=== PATIENT | male | born 1960 | race Caucasian/White ===

== ENCOUNTER 2018-10-15 18:43 | Observation (INO) ==
[2018-10-15 19:36] LABS: BASOPHILS # (AUTO) 0.1 X10^3/uL (0.0-0.1); BASOPHILS % (AUTO) 0.8 % (0.2-1.0); EOSINOPHILS # (AUTO) 0.1 x10^3/uL (0.0-0.2); EOSINOPHILS % (AUTO) 0.8 % (0.9-2.9); HEMATOCRIT 47.5 % (42.0-54.0); HEMOGLOBIN 16.3 g/dL (13.5-18.0); LYMPHOCYTES # (AUTO) 1.8 X10^3/uL (1.3-2.9); LYMPHOCYTES % (AUTO) 17.2 % (21.0-51.0); MEAN CORPUSCULAR HGB CONC 34.2 g/dL (33.0-35.0); MEAN CORPUSCULAR VOLUME 84.8 fL (80.0-100.0); MEAN PLATELET VOLUME 9.7 fL (7.4-11.0); MONOCYTES # (AUTO) 0.8 x10^3/uL (0.3-0.8); MONOCYTES % (AUTO) 7.5 % (0.0-13.0); NEUTROPHILS # (AUTO) 7.7 x10^3/uL (2.2-4.8); NEUTROPHILS % (AUTO) 73.7 % (42.0-75.0); PLATELET COUNT 194 X10^3/uL (150.0-450.0); RED CELL DISTRIBUTION WIDTH 13.6 % (11.6-16.5); WHITE BLOOD COUNT 10.5 X10^3/uL (3.6-10.0)
[2018-10-15 19:44] LABS: ALANINE AMINOTRANSFERASE 29 Units/L (12-78); ALBUMIN 2.8 g/dL (3.4-5.0); ALKALINE PHOSPHATASE 103 Units/L (46-116); ASPARTATE AMINO TRANSFERASE 19 Units/L (15-37); BLOOD UREA NITROGEN 14 mg/dL (7-18); CARBON DIOXIDE 21.9 mmol/L (21-32); CHLORIDE 102 mmol/L (98-107); COR NA(FOR HYPERGLY) 140 mmol/L (136-145); CREATININE 1.14 mg/dL (0.70-1.30); SODIUM 137 mmol/L (136-145); TOTAL PROTEIN 7.9 g/dL (6.4-8.2); eGFR NON BLACK RACES > 60 (>60)
--- NOTE | 2018-10-15 21:40 | VAS ---
Right lower extremity venous doppler Indication: Right leg pain Technique: Multiple foster scale and color doppler images of the deep venous system were obtained of the right lower extremity. Findings: The deep venous system of the right lower extremity was evaluated from the level of the common femoral vein through the popliteal vein. Normal color flow and augmentation is observed. In addition, normal compression is seen throughout the deep venous system of the right lower extremity. Impression: Negative for DVT. Reported By:
--- NOTE | 2018-10-15 22:09 | DR.GENAD ---
HPI Time Seen Time Seen by Provider: 10/15/18 19:21 PCP Primary Care Physician: ELENA Complaint/Symptoms Chief Complaint Doctors Comments: Patient presents with complaint of cellulitis for prolong length of time. He admits to the RLE has been hurting very badly. He has a pressure dressing on the extremity too tightly applied with deep skin depression on the leg, area is cyanotic and tender. Chief Complaint:: PT STATES" MY CELLULITIS IS DRIVING ME CRAZY MY RT LEG IS HURTING ME REALLY BAD. I MAY HAVE A BLOOD CLOT WELL" Source History Provided: Patient Mode of Arrival Mode of Arrival: Ambulatory Timing Onset of Chief Complaint: 10/13/18 PMH PMH Past Medical History: Yes Past Medical History: Hypertension Past Surgical History: Yes Surgical History: Joint Replacement Past Surgical History Comment: LT HIP Family History History of Family Medical Conditions: Yes Family Medical History: Hypertension Social History Does patient currently use any type of tobacco product: No Have you used tobacco products in the last 12 months: No Type of Tobacco Use: None Does any household member use tobacco: No Alcohol Use: None Do you use any recreational Drugs:: No Lives With: Family Lives Where: Home infectious screening In the last 2 months have you had wt loss of >10#?: NO Have you had fever, night sweats or hemotysis?: No Have you traveled outside the country in the last 6 months?: No Isolation: Standard ROS Review of Systems Constitutional: No Symptoms Reported Eyes: No Symptoms Reported ENTM: No Symptoms Reported Respiratoy: No Symptoms Reported Cardiovascular: No Symptoms Reported Gastrointestinal/Abdominal: No Symptoms Reported Genitourinary: No Symptoms Reported Neurological: No Symptoms Reported Musculoskeletal: Right and Leg (right lower extremity pain) Integumentary: Change in Color (right lower extremity cyanotic due to pressure stocking) Hematologic/Lymphatic: No Symptoms Reported Endocrine: No Symptoms Reported Psychiatric: No Symptoms Reported All Other Systems: Reviewed and Negative PE Vital Signs Vitals: Temperature 98.2 F Pulse Rate [Left Radial] 90 Pulse Rate 99 Respiratory Rate 22 Blood Pressure [Left Arm] 140/84 Blood Pressure 144/90 O2 Sat by Pulse Oximetry 96 General Limitations: No Limitations General Appearance: Alert and In No Apparent Distress Head Head Exam: Normal Inspection, Atraumatic and Normocephalic Eyes Eye exam: Normal Appearance, PERRL and EOMI ENT ENT Exam: Normal Exam, Normal Oropharynx and Normal External Ear Exam TM/Canal Exam: Bilateral: Normal Nose Exam: Normal Nose Exam Mouth Exam: Normal Inspection Throat Exam: Normal Inspection Neck Neck Exam: Normal Inspection and Full ROM Chest Chest Inspection: Normal Inspection and Symmetric Chest Wall Rise Respiratory Respiratory Exam: Normal Lung Sounds Bilat and Accessory Muscle Use Respiratory Exam: Bilateral: Clear to Auscultation Cardiovascular Cardiovascular Exam: Regular Rate and Normal Rhythm Abdominal Exam Abdominal Exam: Normal Inspection, Normal Bowel Sounds, Soft and Distention Extremities Extremities Exam: Tenderness (right lower extremity erythematous, tender), Normal Capillary Refill, Edema and Calf Tenderness Back Back Exam: Normal Inspection Neurologic Neurological Exam: Alert, Oriented X3 and CN II-XII Intact Psychiatric Psychiatric Exam: Normal Affect and Normal Mood Skin Skin Exam: Warm, Dry, Intact, Rash (RLE) and Cyanosis MDM Differential Diagnosis Differential Diagnosis: blood clot (DVT), cellulitis of RLE COURSE Reevaluation 1st: Unchanged ROR Labs Reviewed Laboratory Results Reviewed?: Yes Result Diagrams: 10/16/18 04:40 10/16/18 04:40 Laboratory: WBC 8.1 X10^3/uL (3.6-10.0) 10/16/18 04:40 RBC 4.96 X10^6/uL (4.7-6.0) 10/16/18 04:40 Hgb 14.3 g/dL (13.5-18.0) D 10/16/18 04:40 Hct 42.6 % (42.0-54.0) 10/16/18 04:40 MCV 85.9 fL (80.0-100.0) 10/16/18 04:40 MCH 28.8 pg (27.0-34.0) 10/16/18 04:40 MCHC 33.5 g/dL (33.0-35.0) 10/16/18 04:40 RDW 13.8 % (11.6-16.5) 10/16/18 04:40 Plt Count 162 X10^3/uL (150.0-450.0) 10/16/18 04:40 MPV 9.5 fL (7.4-11.0) 10/16/18 04:40 Neut % (Auto) 71.2 % (42.0-75.0) 10/16/18 04:40 Lymph % (Auto) 18.9 % (21.0-51.0) L 10/16/18 04:40 [place] % (Auto) 8.0 % (0.0-13.0) 10/16/18 04:40 Eos % (Auto) 1.3 % (0.9-2.9) 10/16/18 04:40 Baso % (Auto) 0.6 % (0.2-1.0) 10/16/18 04:40 Neut # (Auto) 5.8 x10^3/uL (2.2-4.8) H 10/16/18 04:40 Lymph # (Auto) 1.5 X10^3/uL (1.3-2.9) 10/16/18 04:40 [place] # (Auto) 0.6 x10^3/uL (0.3-0.8) 10/16/18 04:40 Eos # (Auto) 0.1 x10^3/uL (0.0-0.2) 10/16/18 04:40 Baso # (Auto) 0.0 X10^3/uL (0.0-0.1) 10/16/18 04:40 Absolute Nucleated RBC 0.0 /100WBC 10/16/18 04:40 INR Target Range - 10/15/18 19:17 INR 0.98 (0.8-1.3) 10/15/18 19:17 APTT 28.8 SECONDS (22.9-36.5) 10/15/18 19:17 PTT Comment - 10/15/18 19:17 D-Dimer 833 ng/mL (0-400) H* 10/15/18 19:17 Sodium 136 mmol/L (136-145) 10/16/18 04:40 Corrected Sodium 140 mmol/L (136-145) 10/16/18 04:40 Potassium 3.3 mmol/L (3.5-5.1) L 10/16/18 04:40 Chloride 103 mmol/L (98-107) 10/16/18 04:40 Carbon Dioxide 24.6 mmol/L (21-32) 10/16/18 04:40 BUN 11 mg/dL (7-18) 10/16/18 04:40 Creatinine 1.01 mg/dL (0.70-1.30) 10/16/18 04:40 Est GFR (MDRD) Af Amer > 60 (>60) 10/16/18 04:40 Est GFR (MDRD) Non-Af > 60 (>60) 10/16/18 04:40 Glucose 267 mg/dL (65-99) H 10/16/18 04:40 Calcium 8.4 mg/dL (8.5-10.1) L 10/16/18 04:40 Corrected Calcium 9.7 mg/dL (8.5-10.1) 10/16/18 04:40 Magnesium 2.0 mg/dL (1.7-2.9) 10/16/18 01:02 Total Bilirubin 0.70 mg/dL (0.2-1.0) 10/16/18 04:40 AST 18 Units/L (15-37) 10/16/18 04:40 ALT 25 Units/L (12-78) 10/16/18 04:40 Alkaline Phosphatase 81 Units/L (46-116) 10/16/18 04:40 C-Reactive Protein 119.50 mg/L (0-3.0) H 10/15/18 19:17 Total Protein 6.6 g/dL (6.4-8.2) 10/16/18 04:40 Albumin 2.4 g/dL (3.4-5.0) L 10/16/18 04:40 Globulin 4.2 g/dL (2.5-4.5) 10/16/18 04:40 Albumin/Globulin Ratio 0.6 Ratio (1.1-2.1) L 10/16/18 04:40 Other Results Comments: D-Dimer elevated. R/o DVT XRAY XRAY Interpreted by: Radiologist XRAY Findings: negative DVT ADDITIONAL NOTES Additional Notes Additional Notes: Patient admitted to Dr. Phelps's service for treatment of cellulitis
[2018-10-15] MEDS ORDERED: ZOFRAN TAB 4 MG PO PRN (22:24)
[2018-10-15] MEDS ORDERED: NS 1000 ML 0 ML ONE (22:30)
[2018-10-15] MEDS ORDERED: ZOSYN VIAL 3.375 GRAMS IV ONE (22:30)
[2018-10-15] MEDS: CLEOCIN 300 MG IV PREMIX 300 MG/50 ML BAG IV SCH (22:46)
[2018-10-15] MEDS ORDERED: K-LYTE EFFERVESCENT PO ONE (22:46)
[2018-10-15] MEDS: D5 1/2 NS 1000 ML 1,000 ML IV SCH (22:46)
[2018-10-15] MEDS ORDERED: K-LYTE EFFERVESCENT ONE (22:48)
[2018-10-15] MEDS ORDERED: CLEOCIN VIAL 600 MG 300 MG in D5W 50 ML IV 50 ML IV SCH (23:00)
[2018-10-16] MEDS ORDERED: POTASSIUM CHLORIDE LIQ 20 MEQ UDC PO PRN (02:09)
[2018-10-16] MEDS ORDERED: MICRO K EXTEN CAP 10 MEQ PO PRN (02:09)
[2018-10-16] MEDS ORDERED: POTASSIUM CHL 40 MEQ/NS 0.45% 500 ML IV PRN (02:09)
[2018-10-16] MEDS ORDERED: K-RIDER 10 MEQ/NS 100 ML 10 MEQ/100 ML BAG IV PRN (02:09)
[2018-10-16] MEDS ORDERED: MAGNESIUM SULFATE 1 GRAM/100 mL PREMIX 1 GM/100 ML BAG IV PRN (02:09)
[2018-10-16] MEDS ORDERED: POTASSIUM CHL 60 MEQ/NS 0.45% 500 ML IV PRN (02:09)
[2018-10-16] MEDS ORDERED: KLOR-CON PO PRN (02:09)
[2018-10-16] MEDS ORDERED: KLOR-CON PO ONE (02:20)
[2018-10-16] MEDS: MOTRIN TAB 600 MG PO PRN ×3 (02:27→22:27)
[2018-10-16] MEDS: CLEOCIN 300 MG IV PREMIX 300 MG/50 ML BAG IV SCH (05:14)
[2018-10-16 05:23] LABS: BASOPHILS % (AUTO) 0.6 % (0.2-1.0); EOSINOPHILS # (AUTO) 0.1 x10^3/uL (0.0-0.2); EOSINOPHILS % (AUTO) 1.3 % (0.9-2.9); HEMATOCRIT 42.6 % (42.0-54.0); HEMOGLOBIN 14.3 g/dL (13.5-18.0); LYMPHOCYTES # (AUTO) 1.5 X10^3/uL (1.3-2.9); LYMPHOCYTES % (AUTO) 18.9 % (21.0-51.0); MEAN CORPUSCULAR HEMOGLOBIN 28.8 pg (27.0-34.0); MEAN CORPUSCULAR HGB CONC 33.5 g/dL (33.0-35.0); MEAN CORPUSCULAR VOLUME 85.9 fL (80.0-100.0); MEAN PLATELET VOLUME 9.5 fL (7.4-11.0); MONOCYTES # (AUTO) 0.6 x10^3/uL (0.3-0.8); NEUTROPHILS # (AUTO) 5.8 x10^3/uL (2.2-4.8); NEUTROPHILS % (AUTO) 71.2 % (42.0-75.0); PLATELET COUNT 162 X10^3/uL (150.0-450.0); RED BLOOD COUNT 4.96 X10^6/uL (4.7-6.0); RED CELL DISTRIBUTION WIDTH 13.8 % (11.6-16.5); WHITE BLOOD COUNT 8.1 X10^3/uL (3.6-10.0)
[2018-10-16 05:39] LABS: ALANINE AMINOTRANSFERASE 25 Units/L (12-78); ALBUMIN 2.4 g/dL (3.4-5.0); ALKALINE PHOSPHATASE 81 Units/L (46-116); ASPARTATE AMINO TRANSFERASE 18 Units/L (15-37); BLOOD UREA NITROGEN 11 mg/dL (7-18); CALCIUM 8.4 mg/dL (8.5-10.1); CARBON DIOXIDE 24.6 mmol/L (21-32); CHLORIDE 103 mmol/L (98-107); COR CA(FOR HYPOALB) 9.7 mg/dL (8.5-10.1); COR NA(FOR HYPERGLY) 140 mmol/L (136-145); CREATININE 1.01 mg/dL (0.70-1.30); SODIUM 136 mmol/L (136-145); TOTAL PROTEIN 6.6 g/dL (6.4-8.2); eGFR NON BLACK RACES > 60 (>60)
[2018-10-16] MEDS: K-DUR TAB 20 MEQ PO PRN (06:02)
[2018-10-16] MEDS: D5 1/2 NS 1000 ML 1,000 ML IV SCH (06:02)
[2018-10-16] MEDS: ZOSYN VIAL 3.375 GRAMS 3.375 G in NS 100 ML IV + SPIKE MINIBAG* 100 ML IV SCH ×3 (11:14→21:15)
[2018-10-16] MEDS: NORVASC TAB 10 MG PO SCH (11:15)
[2018-10-16] MEDS: FLOMAX PO SCH (11:15)
[2018-10-16] MEDS: ZESTRIL TAB 10 MG PO SCH (11:15)
[2018-10-16] MEDS: HumuLIN R SUBCUT PRN ×3 (12:26→20:45)
[2018-10-16] MEDS ORDERED: TYLENOL 325 MG TAB PO ONE (14:15)
[2018-10-16] MEDS: TYLENOL 325 MG TAB PO PRN ×2 (14:17→20:46)
[2018-10-16] MEDS: NS + KCL 20 MEQ/L 1,000 ML IV SCH ×2 (15:26→22:02)
--- NOTE | 2018-10-16 18:39 | DR.H&P ---
H&P - History & Physical for Day of: H&P Date: 10/15/18 - Chief Complaint Chief Complaint: RLE REDNESS, SWELLING, PAIN - History of Present Illness History of Present Illness: IS A 58 YEAR OLD PATIENT OF WHO REPORTED TO THE ER WITH COMPLAINTS OF RIGHT LEG PAIN, REDNESS, AND SWELLING. HE HAS A HISTORY OF CELLULITIS. ON ARRIVAL, VITALS WERE 97.3-99-20-96%-144/90. WBC 10.5, D-DIMER 833, POTASSIUM 3.3, GLUCOSE 267, CALCIUM 8.4, ALBUMIN 2.4. BLOOD CULTURES OBTAINED AND PENDING. A LOWER EXTREMITY VENOUS DOPPLER WAS OBTAINED AND REVEALED: Negative for DVT. HE DENIES A HISTORY OF DIABETES. HE WAS STARTED ON CLEOCIN 300MG IV Q8H AND ADMITTED FOR FURTHER EVALUATION AND TREATMENT OF RLE CELLULITIS. WE PLAN TO FOLLOW UP WITH AM LABS AND CONTINUE TO MONITOR. - Past Medical History Past Medical History: Hypertension - Past Surgical History Surgical History: Joint Replacement - Family History Family Medical History: Hypertension - Social History Does patient currently use any type of tobacco product: No Have you used tobacco products in the last 12 months: No Type of Tobacco Use: None Does any household member use tobacco: No Alcohol Use: None - Medications Home Medications: No Known Drug Allergies Allergy (Verified 10/15/18 18:46) CONTINUE taking the following medications amlodipine 10 mg PO DAILY 10/15/18 [History] cephalexin 500 mg PO BID 10/15/18 [History] lisinopril 10 mg PO DAILY 10/15/18 [History] tamsulosin 0.4 mg PO DAILY 10/15/18 [History] - Review of Systems Constitutional: No Symptoms Reported Eyes: No Symptoms Reported ENT: No Symptoms Reported Respiratory: No Symptoms Reported Cardiovascular: Edema (RLE NON-PITTING EDEMA ) Gastrointestinal: No Symptoms Reported Genitourinary: No Symptoms Reported Musculoskeletal: Leg Pain (RIGHT LEG PAIN ) Skin: See HPI Neurological: No Symptoms Reported - Physical Exam Vital Signs: Temperature 98.1 F Pulse Rate [Left Radial] 74 Pulse Rate 99 Respiratory Rate 20 Blood Pressure [Left Arm] 141/73 Blood Pressure 144/90 O2 Sat by Pulse Oximetry 97 Oriented: Normal Eyes: Normal Ear: Normal Nose: Normal Throat: Normal Respiratory: Diminished Throughout Cardiovascular: Normal, Edema (RLE NON-PITTING EDEMA ). negative: S3, S4, Murmur : Normal Auscultation: Bowel Sounds: Normal Palpation: Normal Tenderness: Normal Skin: Normal Musculoskeletal: Right, Leg, Swelling, Tender Psychiatric: Normal Mood Description: Calm Affect: Normal Speech Pattern: Clear - Assessment/Plan (1) Lower extremity cellulitis Qualifiers: Laterality: right Qualified Code(s): L03.115 - Cellulitis of right lower li mb Status: Acute Plan: IV CLEOCIN, IV FLUIDS, CONTINUE TO MONITOR - Allergies Allergies/Adverse Reactions: Allergies Allergy/AdvReac Type Severity Reaction Status Date / Time No Known Drug Allergies Allergy Verified 10/15/18 18:46
--- NOTE | 2018-10-16 19:36 | PCM.PROG ---
Progress Note - Progress Note for Day of Date of Exam: 10/16/18 - Subjective Subjective: WAS ADMITTED FOR RIGHT LOWER EXTREMITY CELLULITIS. TODAY, HE IS ALERT AND ORIENTED, LYING IN BED ON MORNING ROUNDS. HE CONTINUES WITH COMPLAINTS OF PAIN, REDNESS, AND SWELLING TO RIGHT LEG. ON EXAMINATION, HEART IS REGULAR IN RATE AND RHYTHM. ABDOMEN IS ROUND, SOFT, AND NON-TENDER WITH NORMAL BOWEL SOUNDS NOTED IN ALL QUADRANTS. BILATERAL RLE IS NOTED WITH ERYTHEMA AND EDEMA. HIS VITALS THIS MORNING ARE 98.1-82-18-98%-154/77. LABS WERE OBTAINED. ABNORMAL LAB VALUES INCLUDE THE FOLLOWING: POTASSIUM 3.3, GLUCOSE 8.4, GLUCOSE 267, HEMOGLOBIN A1C, CALCIUM 8.4, ALBUMIN 2.4. BLOOD CULTURES ARE PENDING. HE DENIED A DIAGNOSIS OF DIABETES. TODAY, WE WILL START HUMULIN R SLIDING SCALE, CHANGE IV FLUIDS TO NORMAL SALINE WITH 20MEQ KCL, CHECK OTBS ACHS, START ZOSYN 3.375G IV TID, AND DISCONTINUE THE CLINDAMYCIN. WE WILL CHANGE HIS DIET TO Soluto. OTHERWISE, WE WILL FOLLOW UP WITH AM LABS AND CONTINUE TO MONITOR. - Past Medical Family Social History Past Med/Fam/Surg Hx: No changes since H&P Allergies: Allergies No Known Drug Allergies Allergy (Verified 10/15/18 18:46) - Review of Systems ROS: No change since H&P - Vital Signs and I&O's Vital Signs: Temperature 98.1 F Pulse Rate [Left Radial] 74 Pulse Rate 99 Respiratory Rate 20 Blood Pressure [Left Arm] 141/73 Blood Pressure 144/90 O2 Sat by Pulse Oximetry 97 Intake and Output: Intake & Output 10/14/18 10/15/18 10/16/18 10/17/18 11:59 11:59 11:59 11:59 Intake Total 1835 / 1835 1740 / 1740 Output Total 675 / 675 400 / 400 Balance 1160 / 1160 1340 / 1340 - Physical Exam Oriented: Normal Eyes: Normal Ear: Normal Nose: Normal Throat: Normal Cardiovascular: Normal, Edema (RLE NON-PITTING EDEMA ). negative: S3, S4, Murmur : Normal Auscultation: Bowel Sounds: Normal Palpation: Normal Tenderness: Normal Skin: Normal Musculoskeletal: Right, Leg, Swelling, Tender Psychiatric: Normal Mood Description: Calm Affect: Normal Speech Pattern: Clear - Laboratory and Diagnostics Result Diagrams: 10/16/18 04:40 10/16/18 08:45 Labs: Laboratory WBC 8.1 X10^3/uL (3.6-10.0) 10/16/18 04:40 RBC 4.96 X10^6/uL (4.7-6.0) 10/16/18 04:40 Hgb 14.3 g/dL (13.5-18.0) D 10/16/18 04:40 Hct 42.6 % (42.0-54.0) 10/16/18 04:40 MCV 85.9 fL (80.0-100.0) 10/16/18 04:40 MCH 28.8 pg (27.0-34.0) 10/16/18 04:40 MCHC 33.5 g/dL (33.0-35.0) 10/16/18 04:40 RDW 13.8 % (11.6-16.5) 10/16/18 04:40 Plt Count 162 X10^3/uL (150.0-450.0) 10/16/18 04:40 MPV 9.5 fL (7.4-11.0) 10/16/18 04:40 Neut % (Auto) 71.2 % (42.0-75.0) 10/16/18 04:40 Lymph % (Auto) 18.9 % (21.0-51.0) L 10/16/18 04:40 [place] % (Auto) 8.0 % (0.0-13.0) 10/16/18 04:40 Eos % (Auto) 1.3 % (0.9-2.9) 10/16/18 04:40 Baso % (Auto) 0.6 % (0.2-1.0) 10/16/18 04:40 Neut # (Auto) 5.8 x10^3/uL (2.2-4.8) H 10/16/18 04:40 Lymph # (Auto) 1.5 X10^3/uL (1.3-2.9) 10/16/18 04:40 [place] # (Auto) 0.6 x10^3/uL (0.3-0.8) 10/16/18 04:40 Eos # (Auto) 0.1 x10^3/uL (0.0-0.2) 10/16/18 04:40 Baso # (Auto) 0.0 X10^3/uL (0.0-0.1) 10/16/18 04:40 Absolute Nucleated RBC 0.0 /100WBC 10/16/18 04:40 INR Target Range - 10/15/18 19:17 INR 0.98 (0.8-1.3) 10/15/18 19:17 APTT 28.8 SECONDS (22.9-36.5) 10/15/18 19:17 PTT Comment - 10/15/18 19:17 D-Dimer 833 ng/mL (0-400) H* 10/15/18 19:17 Sodium 136 mmol/L (136-145) 10/16/18 04:40 Corrected Sodium 140 mmol/L (136-145) 10/16/18 04:40 Potassium 3.3 mmol/L (3.5-5.1) L 10/16/18 08:45 Chloride 103 mmol/L (98-107) 10/16/18 04:40 Carbon Dioxide 24.6 mmol/L (21-32) 10/16/18 04:40 BUN 11 mg/dL (7-18) 10/16/18 04:40 Creatinine 1.01 mg/dL (0.70-1.30) 10/16/18 04:40 Est GFR (MDRD) Af Amer > 60 (>60) 10/16/18 04:40 Est GFR (MDRD) Non-Af > 60 (>60) 10/16/18 04:40 Glucose 267 mg/dL (65-99) H 10/16/18 04:40 POC Glucose (mg/dL) 211 mg/dL (65-99) H 10/16/18 15:59 Hemoglobin A1c 9.5 % 10/16/18 04:40 Calcium 8.4 mg/dL (8.5-10.1) L 10/16/18 04:40 Corrected Calcium 9.7 mg/dL (8.5-10.1) 10/16/18 04:40 Magnesium 2.0 mg/dL (1.7-2.9) 10/16/18 01:02 Total Bilirubin 0.70 mg/dL (0.2-1.0) 10/16/18 04:40 AST 18 Units/L (15-37) 10/16/18 04:40 ALT 25 Units/L (12-78) 10/16/18 04:40 Alkaline Phosphatase 81 Units/L (46-116) 10/16/18 04:40 C-Reactive Protein 119.50 mg/L (0-3.0) H 10/15/18 19:17 Total Protein 6.6 g/dL (6.4-8.2) 10/16/18 04:40 Albumin 2.4 g/dL (3.4-5.0) L 10/16/18 04:40 Globulin 4.2 g/dL (2.5-4.5) 10/16/18 04:40 Albumin/Globulin Ratio 0.6 Ratio (1.1-2.1) L 10/16/18 04:40 - Plan (1) Lower extremity cellulitis Status: Acute Qualifiers: Laterality: right Qualified Code(s): L03.115 - Cellulitis of right lower limb Plan: IV ZOSYN, IV FLUIDS, CONTINUE TO MONITOR (2) New onset type 2 diabetes mellitus Status: Acute Plan: OTBS ACHS, HUMULIN R SLIDING SCALE, [facility], DIABETIC TEACHING, CONTINUE TO MONITOR
[2018-10-16] MEDS ORDERED: SNACK - Diabetic Appropriate PO SCH (20:00)
[2018-10-17] MEDS: ZOSYN VIAL 3.375 GRAMS 3.375 G in NS 100 ML IV + SPIKE MINIBAG* 100 ML IV SCH (05:10)
[2018-10-17] MEDS: TYLENOL 325 MG TAB PO PRN (05:15)
[2018-10-17 05:26] LABS: BASOPHILS % (AUTO) 0.7 % (0.2-1.0); EOSINOPHILS # (AUTO) 0.2 x10^3/uL (0.0-0.2); EOSINOPHILS % (AUTO) 3.7 % (0.9-2.9); HEMATOCRIT 43.1 % (42.0-54.0); HEMOGLOBIN 14.4 g/dL (13.5-18.0); LYMPHOCYTES # (AUTO) 1.7 X10^3/uL (1.3-2.9); LYMPHOCYTES % (AUTO) 28.1 % (21.0-51.0); MEAN CORPUSCULAR HEMOGLOBIN 28.9 pg (27.0-34.0); MEAN CORPUSCULAR HGB CONC 33.5 g/dL (33.0-35.0); MEAN CORPUSCULAR VOLUME 86.3 fL (80.0-100.0); MONOCYTES # (AUTO) 0.6 x10^3/uL (0.3-0.8); MONOCYTES % (AUTO) 10.1 % (0.0-13.0); NEUTROPHILS # (AUTO) 3.5 x10^3/uL (2.2-4.8); NEUTROPHILS % (AUTO) 57.4 % (42.0-75.0); PLATELET COUNT 161 X10^3/uL (150.0-450.0); RED CELL DISTRIBUTION WIDTH 13.3 % (11.6-16.5); WHITE BLOOD COUNT 6.1 X10^3/uL (3.6-10.0)
[2018-10-17] MEDS: HumuLIN R SUBCUT PRN (05:31)
[2018-10-17] MEDS: NS + KCL 20 MEQ/L 1,000 ML IV SCH (05:32)
[2018-10-17 05:43] LABS: ALANINE AMINOTRANSFERASE 47 Units/L (12-78); ALBUMIN 2.3 g/dL (3.4-5.0); ALKALINE PHOSPHATASE 80 Units/L (46-116); ASPARTATE AMINO TRANSFERASE 43 Units/L (15-37); BLOOD UREA NITROGEN 8 mg/dL (7-18); CALCIUM 8.4 mg/dL (8.5-10.1); CARBON DIOXIDE 22.4 mmol/L (21-32); CHLORIDE 106 mmol/L (98-107); COR CA(FOR HYPOALB) 9.8 mg/dL (8.5-10.1); COR NA(FOR HYPERGLY) 141 mmol/L (136-145); CREATININE 0.83 mg/dL (0.70-1.30); SODIUM 139 mmol/L (136-145); TOTAL PROTEIN 6.4 g/dL (6.4-8.2); eGFR NON BLACK RACES > 60 (>60)
[2018-10-17 08:18] VITALS: BP 179/83
[2018-10-17] MEDS: NORVASC TAB 10 MG PO SCH (08:18)
[2018-10-17] MEDS: ZESTRIL TAB 10 MG PO SCH (08:18)
[2018-10-17] MEDS: FLOMAX PO SCH (08:18)
[2018-10-17] MEDS: MOTRIN TAB 600 MG PO PRN (08:21)
[2018-10-17] MEDS ORDERED: MILK OF MAGNESIA PO SCH (09:00)
[2018-10-17 09:12] VITALS: BMI 43.1
[2018-10-17] MEDS: K-DUR TAB 20 MEQ PO PRN (09:14)
[2018-10-17] MEDS ORDERED: COLACE CAP 100 MG PO SCH (21:00)
== END 2018-10-17 10:30 | disposition home or self-care (01) ==
LOC: MED/SURG 18:43 → ER 18:43 → MED/SURG 23:00
PROVIDERS: ADMIT Internal Medicine; ATTEND Internal Medicine
DX: E11.9 Type 2 diabetes mellitus without complications; I10 Essential (primary) hypertension; M79.661 Pain in right lower leg; L03.115 Cellulitis of right lower limb
CPT/HCPCS: 36415; 80053; 83036; 83735; 84132; 85025; 85378; 85610; 85730; 86140; 87040; 93971; 96365; 96367; 96372; 96374; 99284; A4216; A4222; S0077; G0378; J1815; J2543; J3490; J7030; J7050; J8499; S5010